=== PATIENT | female | born 1975 | race Caucasian/White ===

== ENCOUNTER 2022-08-09 08:02 | Emergency (ER) | payer BC ==
[2022-08-09 08:45] LABS: CHLORIDE,CL 100 mmol/L (98-107); SODIUM,NA 138 mmol/L (136-145)
[2022-08-09 08:50] LABS: ESTIMATED GFR 70 mL/min (>=60)
[2022-08-09] MEDS ORDERED: Ketorolac 30 MG/ML SDV IM ONE (09:19)
== END 2022-08-09 09:30 | disposition home or self-care (01) ==
LOC: VM.ED 08:02
DX: R10.13 Epigastric pain (principal); R10.10 Upper abdominal pain, unspecified; E78.00 Pure hypercholesterolemia, unspecified; E11.9 Type 2 diabetes mellitus without complications; E66.9 Obesity, unspecified; Z68.31 Body mass index [BMI] 31.0-31.9, adult; Z79.899 Other long term (current) drug therapy; Z79.84 Long term (current) use of oral hypoglycemic drugs
CPT/HCPCS: 36415; 80053; 81001; 83735; 84100; 85025; 86140; 96372; 99284; J1885

== ENCOUNTER 2022-11-21 08:31 | Day surgery (SDC) | payer BC ==
[~2022-11-21 08:31] MED LIST: Lactated Ringers 1,000 ML IV SCH; Sodium Chloride 0.9% 10 ML Syringe FLUSH PRN
[2022-11-21] MEDS: Lactated Ringers 1,000 ML IV SCH (08:49)
[2022-11-21] MEDS ORDERED: Propofol 200 MG/20 ML SDV ONE ×2 (09:09→10:35)
[2022-11-21] MEDS ORDERED: fentaNYL 100 MCG/2 ML SDV ONE (09:10)
== END 2022-11-21 12:30 | disposition home or self-care (01) ==
LOC: VM.SDS 08:31
PROVIDERS: ATTEND Student in an Organized Health Care Education/Training Program
DX: Z12.11 Encounter for screening for malignant neoplasm of colon (principal); F41.9 Anxiety disorder, unspecified; F32.A Depression, unspecified; E78.5 Hyperlipidemia, unspecified; I47.20 Ventricular tachycardia, unspecified; E66.9 Obesity, unspecified; Z79.899 Other long term (current) drug therapy
CPT/HCPCS: 00812; J2704; J3010; J7120